=== PATIENT | female | born 1970 | race Caucasian/White ===

== ENCOUNTER 2020-04-12 19:33 | Emergency (ER) | payer BC ==
--- NOTE | 2020-04-12 20:55 | EDM.PDOC ---
ED HPI GENERAL MEDICAL PROBLEM - General Chief Complaint: Laceration Stated Complaint: CUT KNUCKLE ON MIDDLE FINGER FOR RIGHT HAND Time Seen by Provider: 04/12/20 19:44 Source of Information: Reports: Patient History Limitations: Reports: No Limitations - History of Present Illness INITIAL COMMENTS - FREE TEXT/NARRATIVE: Mrs. Roberto is a very pleasant 49-year-old woman with no chronic medical problems, who now presents the ED stating that she lacerated the dorsal aspect of her 3rd middle finger while chopping wood around 18:15 this evening. She states that she and her are at a campground, and that as she came down with the ax or hatchet, some wood flipped backwards, pinching her third IP joint against the handle. She is otherwise uninjured. Here in the ED, the patient is found to be hemodynamically stable, afebrile, saturating 100% on room air. Other than tonight's injury, the patient denies recent fever, chills, sore throat, ear pain, nasal or sinus congestion, cough, dyspnea, chest pain, palpitations, nausea, vomiting, constipation, diarrhea, abdominal pain, urinary symptoms, recent weight gain or weight loss, recent bloody bowel movements or black bowel movements, recent joint aches, headaches, or rashes. She states that her last tetanus vaccination was somewhere between 5 and 10 years ago. The patient is visiting from [place]. Right Hand Pain Score (Numeric/FACES): 5 - Related Data Allergies Allergy/AdvReac Type Severity Reaction Status Date / Time No Known Allergies Allergy Verified 04/12/20 19:47 Home Meds: Home Meds . [No Known Home Meds] 04/12/20 [History] Past Medical History - Past Surgical History HEENT Surgical History: Reports: Oral Surgery (wisdom teeth extraction), Tonsillectomy Female Surgical History: Reports: Other (See Below) (Bladder suspension) Musculoskeletal Surgical History: Reports: Arthroscopic Knee (left ACL repair) Social & Family History - Tobacco Use Smoking Status *Q: Never Smoker Second Hand Smoke Exposure: No - Caffeine Use Caffeine Use: Reports: None - Alcohol Use Alcohol Use History: Yes Alcohol Use Frequency: Socially - Recreational Drug Use Recreational Drug Use: No - Living Situation & Occupation Living situation: Reports: , with Spouse, with Family (2 21 year-old sons) 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 ED EXAM, SKIN/RASH Exam: See Below Exam Limited By: No Limitations General Appearance: Alert, WD/WN, No Apparent Distress Extremities: Other (There is an approximately 3 cm irregular full-thickness laceration over the dorsal aspect of the patient's right 3rd PIP, extending onto the dorsal aspect of her right 3rd proximal phalanx. The wound is not currently bleeding. She has strong extension of the 3rd finger. Neurovascular status of the finger is intact.) ED SKIN PROCEDURES - Laceration/Wound Repair Right Hand Appearance: Subcutaneous, Irregular, Clean Distal NVT: Neuro & Vascular Intact, No Tendon Injury Exploration/Debridement/Repair: Wound Explored, In a Bloodless Field, Explored to Base, No Foreign Material Found Closed with: Dermabond Lac/Wound length In cm: 3.0 Tetanus Status Addressed: Yes Complications: No Course - Vital Signs Last Recorded V/S: Last Vital Signs Temp 36.3 C 04/12/20 19:43 Pulse 64 04/12/20 19:43 Resp 16 04/12/20 19:43 BP 130/78 04/12/20 19:43 Pulse Ox 100 04/12/20 19:43 - Re-Assessments/Exams Free Text/Narrative Re-Assessment/Exam: 04/12/20 20:50 Although irregular in shape, the edges of the wound approximated to each other, therefore the laceration was a good candidate for Dermabond. After the finger was thoroughly dried, I applied Dermabond over the wound. The patient tolerated the procedure well. We then placed her into a volar AlumaFoam finger splint to help prevent her from accidentally flexing her finger. I would like her to wear the splint for the next few days. Because the Dermabond is still tacky, we did not place a bandage over it here in the ED, however, once the glue has thoroughly dried, probably within a few hours, she can apply a bandage over it to help keep it clean. Departure - Departure Time of Disposition: 20:51 Disposition: Home, Self-Care 01 Condition: Good Clinical Impression: Laceration of right middle finger - Discharge Information *PRESCRIPTION DRUG MONITORING PROGRAM REVIEWED*: Not Applicable *COPY OF PRESCRIPTION DRUG MONITORING REPORT IN PATIENT BRIONNA: Not Applicable Instructions: Laceration Care, Adult, [id number] Referrals: PCP,Not In Area [Primary Care Provider] - Forms: ED Department Discharge Additional Instructions: You were seen in the emergency room after your right middle finger was cut while you were chopping wood. Your wound was closed with Dermabond. After the Dermabond thoroughly dries, likely within a few hours, you may apply a clean bandage over it, to help keep it clean. Your finger has been placed into a splint to that you from flexing your finger. We recommend that you wear the splint for the next 4 days. You may remove the splint to bathe, however, we recommend that you do not pick at the glue. Allow it to fall off on its own. Take [id number] Tylenol or ibuprofen as needed for discomfort. If any other problems, please do not hesitate to return to the ER. Sepsis Event Note (ED) - Evaluation Sepsis Screening Result: No Definite Risk - Focused Exam Vital Signs: Vital Signs Temp Pulse Resp BP Pulse Ox 04/12/20 19:43 36.3 C 64 16 130/78 100
== END 2020-04-12 21:00 | disposition home or self-care (01) ==
LOC: JD.ED 19:33
DX: S61.212A Laceration without foreign body of right middle finger without damage to nail, initial encounter (principal); W26.8XXA Contact with other sharp object(s), not elsewhere classified, initial encounter
CPT/HCPCS: 12002; 99282